=== PATIENT | female | born 1990 | race Caucasian/White ===

== ENCOUNTER → 2022-04-29 | Outpatient (CLI) | payer OTHER ==
--- NOTE | 2022-04-29 15:58 | US ---
EXAMINATION TYPE: US thyroid st tissue head/neck DATE OF EXAM: 04/29/2022 COMPARISON: NONE CLINICAL HISTORY: E04.9 NONTOXIC GOITER, UNSPECIFIED. Patient states weight gain. No abnormal thyroi d levels per patient. GLAND SIZE: Right Lobe: 4.8 x 1.5 x 1.2 cm Overall Parenchyma: homogenous Left Lobe: 5.2 x 1.7 x1.5 cm Overall Parenchyma: homogeneous Isthmus Thickness: 0.7 cm NODULES RIGHT: # of nodules measured on right: 1 1. 0.4 X 0.4 x 0.3 cm, lower lateral, colloid appearing cystic or almost completely cystic, anechoi c nodule, which is wider than tall, with smooth margins, without echogenic foci. Prior size: no prior LEFT: # of nodules measured on left: 0 ISTHMUS: # of nodules measured in the isthmus: 0 Bilateral neck scanned, no evidence of lymphadenopathy. 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 Otherwise no suspicious thyroid nodules.
== END | disposition home or self-care (01) ==
LOC: RADUSWWP 15:20
PROVIDERS: ATTEND Family Medicine
DX: E04.1 Nontoxic single thyroid nodule (principal); E04.9 Nontoxic goiter, unspecified
CPT/HCPCS: 76536

== ENCOUNTER → 2023-07-23 | Outpatient (CLI) | payer OTHER ==
--- NOTE | 2023-07-24 11:27 | CT ---
EXAMINATION TYPE: CT abdomen pelvis wo/w con CT DLP: 2931.6 mGycm, Automated exposure control for dose reduction was used. DATE OF EXAM: 07/23/2023 2:26 PM COMPARISON: 02/02/2023. CLINICAL INDICATION:Female, 32 years old with history of R10.84 GEN AB PAIN R31.9 HEMATURIA; left fl ank pain TECHNIQUE: Axial CT abdomen pelvis wo/w con;Sagittal and coronal reformats were created on a [employer] workstation. Contrast used:100 mL of Isovue 370 without and with IV Contrast, (none if empty) Oral contrast used: with Oral Contrast (none if empty) FINDINGS: LOWER CHEST: Unremarkable ABDOMEN LIVER: Unremarkable GALLBLADDER AND BILE DUCTS: Unremarkable. PANCREAS: Unremarkable. SPLEEN: Unremarkable. ADRENAL GLANDS: Unremarkable. KIDNEYS AND URETERS: No evidence of hydronephrosis or renal calculus. The ureters are unremarkable. PELVIS BLADDER: Unremarkable REPRODUCTIVE: Tampon is in the vagina. Left ovarian cyst measuring up to 3.7 cm. Right pelvic mass se en on prior has been surgically removed. ABDOMEN & PELVIS STOMACH AND BOWEL: No evidence of bowel obstruction. The appendix is normal. PERITONEUM/RETROPERITONEUM: No evidence of pneumoperitoneum or free fluid. VASCULATURE: No evidence of aortic aneurysm. MUSCULOSKELETAL: No acute osseous abnormalities LYMPH NODES: No gross evidence for lymphadenopathy. SOFT TISSUE/ABDOMINAL WALL: Fat-containing umbilical hernia. IMPRESSION: No obstructive uropathy or renal calculus. Left ovarian cyst measuring up to 3.7 cm. Concerning evaluation with transvaginal ultrasound with [facility] imaging. This is similar to prior on 02/02/2023. Right pelvic mass seen on prior has been surgically removed. Tampon is in the vagina.
== END | disposition home or self-care (01) ==
LOC: RADCTMAIN 12:28
PROVIDERS: ATTEND Family Medicine
DX: R31.9 Hematuria, unspecified (principal); N83.202 Unspecified ovarian cyst, left side
CPT/HCPCS: 74178; Q9967